=== PATIENT | male | born 2000 | race African-American/Black ===

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

== ENCOUNTER 2020-04-11 16:35 | Emergency (ER) | payer MEDICAID ==
[~2020-04-11] VITALS: Ht 180.3 cm; Wt 69.7 kg
[2020-04-11 16:42] VITALS: BP 144/82
== END 2020-04-11 17:50 | disposition home or self-care (01) ==
LOC: ED 17:40
DX: J06.9 Acute upper respiratory infection, unspecified (principal); Z20.828 Contact with and (suspected) exposure to other viral communicable diseases; B34.9 Viral infection, unspecified; F17.200 Nicotine dependence, unspecified, uncomplicated
CPT/HCPCS: 87635; 99283